=== PATIENT | female | born 1990 | race African-American/Black ===

== ENCOUNTER 2017-02-18 04:19 | Emergency (ER) | payer SELFPAY ==
[2017-02-18 04:31] VITALS: BP 118/79; BMI 29.2
--- NOTE | 2017-02-18 04:35 | DR.GENAD ---
HPI - PCP Primary Care Physician: nfd - HPI Comment HPI Comment: As below; no drainage, fever or chills; pain extends into the jaw; no recent trauma; no similar problems in past; otc tylenol no relief. note: motada hurts her stomach - Complaint/Symptoms Chief Complaint:: pt states" sasha been having pain in my lt ear and not its got my whole side of my face hurting. It started with sinus infection now this" - Source History Provided: Patient - Mode of Arrival Mode of Arrival: Ambulatory - Timing Onset of Chief Complaint: 02/15/17 PMH - PMH Past Medical History: Yes Past Medical History: Migraines Past Surgical History: Yes Surgical History: Other Past Surgical History Comment: gallstones removed - Family History History of Family Medical Conditions: Yes Family Medical History: Diabetes Mellitus, Cancer, Hypertension - Social History Do you use any recreational Drugs:: No Lives With: Family Lives Where: Home - infectious screening In the last 2 months have you had wt loss of >10#?: NO Have you had fever, night sweats or hemotysis?: No Have you traveled outside the country in the last 6 months?: No Isolation: Standard ROS - Review of Systems Constitutional: No Symptoms Reported ENTM: See HPI, Ear Pain Respiratoy: No Symptoms Reported Cardiovascular: No Symptoms Reported Gastrointestinal/Abdominal: No Symptoms Reported Integumentary: No Symptoms Reported PE - Vital Signs Vitals: Temperature 97 F Pulse Rate 60 Respiratory Rate 18 Blood Pressure [Left Arm] 120/80 Blood Pressure 118/79 O2 Sat by Pulse Oximetry 99 - General Limitations: No Limitations General Appearance: Alert, Other (covering face; crying with exam) - Head Head Exam: Normal Inspection - ENT ENT Exam: Normal Exam, Normal Oropharynx, Mucous Membranes Moist External Ear Exam: Pain with Movement, External Tenderness, Other (crepitus bilateral tmj; popping on left) TM/Canal Exam: Bilateral Normal Mouth Exam: Normal Inspection Throat Exam: Normal Inspection - Neck Neck Exam: Normal Inspection - Chest Chest Inspection: Normal Inspection - Respiratory Respiratory Exam: Normal Lung Sounds Bilat Respiratory Exam: Bilateral Clear to Auscultation - Cardiovascular Cardiovascular Exam: Regular Rate, Normal Rhythm - Abdominal Exam Abdominal Exam: Normal Inspection, Normal Bowel Sounds - Diagnosis Discharge Problem: Otalgia of left ear, TMJ (temporomandibular joint syndrome) - Discharge Plan Disposition: HOME, SELF-CARE Condition: Stable Prescriptions: Ketorolac Tromethamine [Toradol Tab] 10 mg PO Q8H PRN #12 tab PRN Reason: Pain - Follow ups/Referrals Follow ups/Referrals: NFD,None [Primary Care Provider] - 3 days - Instructions Instructions: Temporomandibular Joint Syndrome Additional Instructions: follow up with ENT if symptoms persist/worsen
[2017-02-18] MEDS ORDERED: TORADOL 30 MG VIAL IM ONE (04:43)
[2017-02-18] MEDS ORDERED: TORADOL 30 MG VIAL ONE (04:45)
== END 2017-02-18 05:18 | disposition home or self-care (01) ==
LOC: ER 04:19
DX: M26.69 Other specified disorders of temporomandibular joint (principal); H92.02 Otalgia, left ear
CPT/HCPCS: 96372; 99282; J1885

== ENCOUNTER 2017-05-11 13:54 | Emergency (ER) | payer SELFPAY ==
[2017-05-11 14:04] VITALS: BP 121/83; BMI 30.9
--- NOTE | 2017-05-11 15:26 | DR.GENAD ---
HPI - PCP Primary Care Physician: THOMAS - HPI Comment HPI Comment: HISTORY BELOW. - Complaint/Symptoms Chief Complaint Doctors Comments: LT EAR PAIN, CONGESTION AND HEADACHE TIMES 4 DAYS.WORSE TODAY. NO FEVER. HAVING POST NASAL DRAINAGE. Chief Complaint:: Left ear had been hurting for about 4 days, now it has spread to left side of face and tooth on left side of mouth - Nurses notes reviewed Nurses Notes Review: Yes - Source History Provided: Patient - Mode of Arrival Mode of Arrival: Ambulatory - Timing Onset of Chief Complaint: 05/07/17 Came on: Gradually - Duration Duration: Constant Duration: Days - Severity Severity: Moderate PMH - PMH Past Medical History: Yes Past Medical History: Migraines Past Surgical History: Yes Surgical History: Other Past Surgical History Comment: gallstone - Family History History of Family Medical Conditions: Yes Family Medical History: Cancer - Social History Does patient currently use any type of tobacco product: Yes Have you used tobacco products in the last 12 months: Yes Type of Tobacco Use: Cigarettes Does any household member use tobacco: No Alcohol Use: None Do you use any recreational Drugs:: No Lives With: Alone Lives Where: Home - infectious screening In the last 2 months have you had wt loss of >10#?: NO Have you had fever, night sweats or hemotysis?: No Have you traveled outside the country in the last 6 months?: No Isolation: Standard ROS - Review of Systems Constitutional: No Symptoms Reported Eyes: No Symptoms Reported ENTM: Ear Pain (LT EAR PAIN), Nose Discharge. negative: Throat Pain Respiratoy: Non-Productive Cough. negative: Short of Breath, Wheezing, Hemoptysis Cardiovascular: No Symptoms Reported Gastrointestinal/Abdominal: No Symptoms Reported Genitourinary: No Symptoms Reported Neurological: No Symptoms Reported Musculoskeletal: No Symptoms Reported Integumentary: No Symptoms Reported Hematologic/Lymphatic: No Symptoms Reported Endocrine: No Symptoms Reported All Other Systems: Reviewed and Negative PE - Vital Signs Vitals: Temperature 98.1 F Pulse Rate 76 Respiratory Rate 20 Blood Pressure [Left Arm] 120/80 Blood Pressure 121/83 O2 Sat by Pulse Oximetry 100 - General Limitations: No Limitations General Appearance: Alert - Head Head Exam: Normal Inspection - Eyes Eye exam: Normal Appearance - ENT ENT Exam: Normal External Ear Exam External Ear Exam: Normal External Inspection TM/Canal Exam: Left Erythema, Left Bulging, Left Canal Tenderness Nose Exam: Sinus Tenderness Mouth Exam: Normal Inspection Throat Exam: Normal Inspection - Neck Neck Exam: Trachea Midline - Chest Chest Inspection: Symmetric Chest Wall Rise - Respiratory Respiratory Exam: Normal Lung Sounds Bilat Respiratory Exam: Bilateral Clear to Auscultation - Cardiovascular Cardiovascular Exam: Regular Rate, Normal Rhythm, Normal Heart Sounds - Abdominal Exam Abdominal Exam: Normal Inspection - Extremities Extremities Exam: Normal Inspection - Back Back Exam: Normal Inspection - Neurologic Neurological Exam: Alert, Oriented X3 - Psychiatric Psychiatric Exam: Normal Affect, Normal Mood - Skin Skin Exam: Normal Color MDM - Differential Diagnosis Differential Diagnosis: LT EAR PAIN, SINUSITIS Course - Treatment Treatment: SEE ORDERS - Education/Counseling Education/Counseling: Patient, Education Educated On: Treatment, Diagnosis, Needs for Follow Up - Diagnosis Discharge Problem: Earache on left Sinusitis Qualifiers: Sinusitis location: unspecified location Chronicity: acute Recurrence: non- recurrent Qualified Code(s): J01.90 - Acute sinusitis, unspecified - Discharge Plan Disposition: 01 HOME, SELF-CARE Condition: Stable Prescriptions: Amoxicillin [Amoxil 875 mg] 875 mg PO TID #30 tab Cetirizine HCl [Zyrtec Tab 10 mg] 10 mg PO DAILY #10 tab Ketorolac Tromethamine [Toradol Tab] 10 mg PO Q8H PRN #12 tab PRN Reason: Pain - Follow ups/Referrals Follow ups/Referrals: NFD,None [Primary Care Provider] - 3 days - Instructions Instructions: Earache, Sinusitis, Adult, [id number], Sinus Headache Additional Instructions: RETURN TO ED IF WORSE.
[2017-05-11] MEDS ORDERED: TORADOL TAB PO ONE ×2 (15:31→15:32)
== END 2017-05-11 15:36 | disposition home or self-care (01) ==
LOC: ER 14:04
DX: J01.80 Other acute sinusitis (principal); H92.02 Otalgia, left ear
CPT/HCPCS: 99282

== ENCOUNTER 2018-02-07 19:04 | Emergency (ER) | payer SELFPAY ==
[2018-02-07 19:11] VITALS: BP 109/55; BMI 29.9
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
[2018-02-07] MEDS ORDERED: MOTRIN TAB 800 MG PO ONE (19:55)
[2018-02-07 20:19] LABS: SERUM PREGNANCY TEST, QUAL POSITIVE >10 mIU/mL
== END 2018-02-07 21:05 | disposition home or self-care (01) ==
LOC: ER 19:22
DX: T74.11XA Adult physical abuse, confirmed, initial encounter (principal); M79.1 Myalgia
CPT/HCPCS: 36415; 84703; 99282

== ENCOUNTER 2018-02-17 17:20 | Emergency (ER) | payer SELFPAY ==
[2018-02-17 17:30] VITALS: BP 113/78
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
[2018-02-17 18:03] LABS: BASOPHILS % (AUTO) 0.5 % (0.2-1.0); EOSINOPHILS % (AUTO) 0.4 % (0.9-2.9); HEMATOCRIT 38.8 % (36.0-47.0); HEMOGLOBIN 13.5 g/dL (12.0-16.0); LYMPHOCYTES # (AUTO) 2.2 X10^3/uL (1.3-2.9); LYMPHOCYTES % (AUTO) 31.2 % (21.0-51.0); MEAN CORPUSCULAR HEMOGLOBIN 30.7 pg (27.0-34.0); MEAN CORPUSCULAR HGB CONC 34.7 g/dL (33.0-35.0); MEAN CORPUSCULAR VOLUME 88.4 fL (80.0-100.0); MEAN PLATELET VOLUME 8.9 fL (7.4-11.0); MONOCYTES # (AUTO) 0.4 x10^3/uL (0.3-0.8); MONOCYTES % (AUTO) 5.7 % (0.0-13.0); NEUTROPHILS # (AUTO) 4.4 x10^3/uL (2.2-4.8); NEUTROPHILS % (AUTO) 62.2 % (42.0-75.0); PLATELET COUNT 218 X10^3/uL (150.0-450.0); RED BLOOD COUNT 4.39 X10^6/uL (3.5-5.4); RED CELL DISTRIBUTION WIDTH 13.4 % (11.6-16.5); WHITE BLOOD COUNT 7.1 X10^3/uL (3.6-10.0)
[2018-02-17 18:12] LABS: BILIRUBIN,URINE NEGATIVE (NEGATIVE); BLOOD/HEMOGLOBIN,URINE NEGATIVE (NEGATIVE); GLUCOSE, URINE NEGATIVE (NEGATIVE); KETONES,URINE 2+ (NEGATIVE); LEUKOCYTE ESTERASE ,URINE NEGATIVE (NEGATIVE); NITRITES,URINE NEGATIVE (NEGATIVE); PH,URINE 6.5 (5.0 - 8.0); PROTEIN,URINE NEGATIVE (NEGATIVE); UROBILINOGEN,URINE NORMAL (NORMAL)
[2018-02-17 18:15] LABS: APPEARANCE,URINE CLEAR (CLEAR); COLOR,URINE YELLOW (YELLOW)
--- NOTE | 2018-02-17 19:48 | US ---
History: with vaginal spotting Study: Transabdominal ultrasound of the pelvis Comparison: None Findings: There is a single intrauterine gestational sac measuring 3.5 cm diameter. There is a 6 mm y olk sac. The crown-rump length measures 1.22 cm. The heart rate measures 154 beats per minute. There is no free fluid. The adnexa is unremarkable. Impression: Single viable 7 week 3 day intrauterine Reported By:
== END 2018-02-17 20:13 | disposition home or self-care (01) ==
LOC: ER 17:31
DX: O20.0 Threatened abortion (principal); O20.9 Hemorrhage in early pregnancy, unspecified
CPT/HCPCS: 36415; 76801; 81003; 84702; 85025; 86900; 86901; 99282; 99284

== ENCOUNTER 2018-03-13 14:24 | Emergency (ER) | payer OTHER ==
[2018-03-13 14:32] VITALS: BP 114/70; BMI 30.2
[2018-03-13] MEDS ORDERED: NS 1000 ML 1,000 ML ONE (15:10)
[2018-03-13] MEDS ORDERED: PEPCID 20 MG IV PREMIX* 20 MG/50 ML BAG IV ONE ×2 (15:11→15:12)
[2018-03-13] MEDS ORDERED: NS 1000 ML 1,000 ML IV ONE (15:11)
--- NOTE | 2018-03-13 15:18 | DR.GIBLEED ---
HPI - Time Seen Time seen: 15:00 - Primary Care Physician Primary Care Physician: ALBERTO ANAYA - Complaints Chief Complaint Doctors Comments: She's been constipated for the duration of this ( 11 wks EGA). She has intermittent nausea and sometimes today she had an emesis that contained blood. She did not feel dizzy or light headed. She complains of some non-specific abdominal disomfort relating to vomitting. Chief Complaint:: PT C/O THOWING UP BRIGHT RED BLOOD ABOUT 20 MIN AGO AND SHE STATES THAT SHE HAS CONSTIPATION AND SHE IS NOT TO STRAIN AND THAT SHE 11 WEEKS .. BR PT C/O HAVING SOME ABD PAIN WELL ,,BR Self Treatment fo Chief Complaint: PT STATES SHE THREW UP A CUP FULL OF BLOOD ,, BR - Reviewed Nurses Notes Reviewed: Yes - Source History Provided: Patient - Mode of Arrival Mode of Arrival: Ambulatory - Timing Onset of Chief Complaint: 03/13/18 - Quality Vomitus: DARK RED PMH - PMH Past Medical History: No Past Medical History: Migraines Past Surgical History: Yes Surgical History: Other Past Surgical History Comment: GALLSTONE REMOVAL - Family History History of Family Medical Conditions: Yes Family Medical History: Cancer - Social History Does patient currently use any type of tobacco product: No Have you used tobacco products in the last 12 months: No Type of Tobacco Use: None Does any household member use tobacco: No Alcohol Use: None Do you use any recreational Drugs:: No Lives With: Family Lives Where: Home - infectious screening In the last 2 months have you had wt loss of >10#?: NO Have you had fever, night sweats or hemotysis?: No Have you traveled outside the country in the last 6 months?: No Isolation: Standard ROS - Review of Systems Constitutional: No Symptoms Reported Eyes: No Symptoms Reported ENTM: No Symptoms Reported Respiratoy: No Symptoms Reported Cardiovascular: No Symptoms Reported Gastrointestinal/Abdominal: Constipation, Nausea, Other (hematemesis) Genitourinary: No Symptoms Reported Neurological: No Symptoms Reported Musculoskeletal: No Symptoms Reported Integumentary: No Symptoms Reported Hematologic/Lymphatic: No Symptoms Reported Endocrine: No Symptoms Reported Psychiatric: No Symptoms Reported All Other Systems: Reviewed and Negative PE - Vital Signs Vitals: Temperature 97.0 F Pulse Rate 84 Respiratory Rate 18 Blood Pressure [Left Arm] 120/80 Blood Pressure 114/70 O2 Sat by Pulse Oximetry 100 - General Limitations: No Limitations General Appearance: Alert, In No Apparent Distress - Head Head Exam: Normal Inspection - Eyes Eye exam: Normal Appearance, PERRL, EOMI - ENT ENT Exam: Normal Exam, Normal Oropharynx - Neck Neck Exam: Normal Inspection, Full ROM, Trachea Midline - Chest Chest Inspection: Normal Inspection, Symmetric Chest Wall Rise - Respiratory Respiratory Exam: Normal Lung Sounds Bilat - Cardiovascular Cardiovascular Exam: Regular Rate, Normal Rhythm, Normal Heart Sounds, +S2 - Abdominal Exam Abdominal Exam: Normal Inspection, Normal Bowel Sounds, Soft - Rectal Rectal Exam: Deferred - Extremities Extremities Exam: Normal Inspection - Back Back Exam: Normal Inspection - Neurologic Neurological Exam: Alert, Oriented X3 - Psychiatric Psychiatric Exam: Normal Affect - Skin Skin Exam: Warm, Dry, Intact, Normal Color Course - Reevaluation 1st: Improved 2nd: Improved - Education/Counseling Education/Counseling: Patient, Family, Education, Counseling Educated On: Treatment, Diagnosis, Prognosis, Needs for Follow Up ROR - Labs Reviewed Result Diagrams: 03/13/18 15:25 03/13/18 15:25 Laboratory: WBC 9.7 X10^3/uL (3.6-10.0) 03/13/18 15:25 RBC 4.14 X10^6/uL (3.5-5.4) 03/13/18 15:25 Hgb 12.8 g/dL (12.0-16.0) 03/13/18 15:25 Hct 36.4 % (36.0-47.0) 03/13/18 15:25 MCV 87.9 fL (80.0-100.0) 03/13/18 15:25 MCH 31.0 pg (27.0-34.0) 03/13/18 15:25 MCHC 35.2 g/dL (33.0-35.0) H 03/13/18 15:25 RDW 13.9 % (11.6-16.5) 03/13/18 15:25 Plt Count 182 X10^3/uL (150.0-450.0) 03/13/18 15:25 MPV 8.9 fL (7.4-11.0) 03/13/18 15:25 Neut % (Auto) 72.8 % (42.0-75.0) 03/13/18 15:25 Lymph % (Auto) 20.7 % (21.0-51.0) L 03/13/18 15:25 [place] % (Auto) 5.6 % (0.0-13.0) 03/13/18 15:25 Eos % (Auto) 0.4 % (0.9-2.9) L 03/13/18 15:25 Baso % (Auto) 0.5 % (0.2-1.0) 03/13/18 15:25 Neut # (Auto) 7.0 x10^3/uL (2.2-4.8) H 03/13/18 15:25 Lymph # (Auto) 2.0 X10^3/uL (1.3-2.9) 03/13/18 15:25 [place] # (Auto) 0.5 x10^3/uL (0.3-0.8) 03/13/18 15:25 Eos # (Auto) 0.0 x10^3/uL (0.0-0.2) 03/13/18 15:25 Baso # (Auto) 0.0 X10^3/uL (0.0-0.1) 03/13/18 15:25 Absolute Nucleated RBC 0.0 /100WBC 03/13/18 15:25 Sodium 135 mmol/L (136-145) L 03/13/18 15:25 Corrected Sodium TNP 03/13/18 15:25 Potassium 3.9 mmol/L (3.5-5.1) 03/13/18 15:25 Chloride 101 mmol/L (98-107) 03/13/18 15:25 Carbon Dioxide 24.1 mmol/L (21-32) 03/13/18 15:25 BUN 6 mg/dL (7-18) L 03/13/18 15:25 Creatinine 0.59 mg/dL (0.55-1.02) 03/13/18 15:25 Est GFR (MDRD) Af Amer > 60 (>60) 03/13/18 15:25 Est GFR (MDRD) Non-Af > 60 (>60) 03/13/18 15:25 Glucose 82 mg/dL (65-99) 03/13/18 15:25 Calcium 8.6 mg/dL (8.5-10.1) 03/13/18 15:25 Corrected Calcium TNP 03/13/18 15:25 Total Bilirubin 0.20 mg/dL (0.2-1.0) 03/13/18 15:25 AST 14 Units/L (15-37) L 03/13/18 15:25 ALT 24 Units/L (12-78) 03/13/18 15:25 Alkaline Phosphatase 47 Units/L (46-116) 03/13/18 15:25 Total Protein 8.1 g/dL (6.4-8.2) 03/13/18 15:25 Albumin 3.8 g/dL (3.4-5.0) 03/13/18 15:25 Globulin 4.3 g/dL (2.5-4.5) 03/13/18 15:25 Albumin/Globulin Ratio 0.9 Ratio (1.1-2.1) L 03/13/18 15:25 - Diagnosis Discharge Problem: Hematemesis with nausea, Nausea and vomiting during prior to 22 weeks gestation - Discharge Plan Disposition: 01 HOME, SELF-CARE Condition: Stable - Follow ups/Referrals Follow ups/Referrals: RENÉ DOMINGUEZ [Primary Care Provider] - 3 days - Instructions Instructions: Hematemesis, Nausea and Vomiting, Adult
[2018-03-13 15:36] LABS: BASOPHILS % (AUTO) 0.5 % (0.2-1.0); EOSINOPHILS % (AUTO) 0.4 % (0.9-2.9); HEMATOCRIT 36.4 % (36.0-47.0); HEMOGLOBIN 12.8 g/dL (12.0-16.0); LYMPHOCYTES % (AUTO) 20.7 % (21.0-51.0); MEAN CORPUSCULAR HGB CONC 35.2 g/dL (33.0-35.0); MEAN CORPUSCULAR VOLUME 87.9 fL (80.0-100.0); MEAN PLATELET VOLUME 8.9 fL (7.4-11.0); MONOCYTES # (AUTO) 0.5 x10^3/uL (0.3-0.8); MONOCYTES % (AUTO) 5.6 % (0.0-13.0); NEUTROPHILS % (AUTO) 72.8 % (42.0-75.0); PLATELET COUNT 182 X10^3/uL (150.0-450.0); RED BLOOD COUNT 4.14 X10^6/uL (3.5-5.4); RED CELL DISTRIBUTION WIDTH 13.9 % (11.6-16.5); WHITE BLOOD COUNT 9.7 X10^3/uL (3.6-10.0)
[2018-03-13 15:49] LABS: ALANINE AMINOTRANSFERASE 24 Units/L (12-78); ALBUMIN 3.8 g/dL (3.4-5.0); ALKALINE PHOSPHATASE 47 Units/L (46-116); ASPARTATE AMINO TRANSFERASE 14 Units/L (15-37); BLOOD UREA NITROGEN 6 mg/dL (7-18); CALCIUM 8.6 mg/dL (8.5-10.1); CARBON DIOXIDE 24.1 mmol/L (21-32); CHLORIDE 101 mmol/L (98-107); CREATININE 0.59 mg/dL (0.55-1.02); SODIUM 135 mmol/L (136-145); TOTAL PROTEIN 8.1 g/dL (6.4-8.2); eGFR BLACK RACES > 60 (>60); eGFR NON BLACK RACES > 60 (>60)
== END 2018-03-13 17:15 | disposition home or self-care (01) ==
LOC: ER 14:35
DX: K92.0 Hematemesis (principal); R11.2 Nausea with vomiting, unspecified; Z3A.11 11 weeks gestation of pregnancy
CPT/HCPCS: 36415; 80053; 85025; 96365; 96374; 99282; 99283; A4222; S0028

== ENCOUNTER 2018-09-26 06:38 | Inpatient (IN) ==
[2018-09-26] MEDS ORDERED: PHENERGAN INJ 25 MG IV PRN (06:52)
[2018-09-26] MEDS ORDERED: DILAUDID INJ IVP PRN ×2 (06:52→23:00)
[2018-09-26] MEDS ORDERED: REGLAN INJ 10 MG VIAL IVP PRN ×2 (06:52→23:00)
[2018-09-26] MEDS ORDERED: NS 100 ML IV 100 ML IV ONE ×4 (06:59→18:52)
[2018-09-26] MEDS ORDERED: PITOCIN ONE ×2 (07:00→10:05)
[2018-09-26] MEDS ORDERED: AMPICILLIN VIAL 2 GRAM ONE (07:00)
[2018-09-26] MEDS ORDERED: AMPICILLIN VIAL 2 GRAM 2 G in NS 100 ML IV + SPIKE MINIBAG* 100 ML IV SCH (07:00)
[2018-09-26] MEDS: D5 1/2 NS 1000 ML 1,000 ML IV SCH ×2 (07:00→15:24)
[2018-09-26 07:24] LABS: BASOPHILS % (AUTO) 0.4 % (0.2-1.0); BILIRUBIN,URINE NEGATIVE (NEGATIVE); BLOOD/HEMOGLOBIN,URINE 1+ (NEGATIVE); EOSINOPHILS % (AUTO) 0.4 % (0.9-2.9); GLUCOSE, URINE NEGATIVE (NEGATIVE); HEMOGLOBIN 12.8 g/dL (12.0-16.0); KETONES,URINE 3+ (NEGATIVE); LEUKOCYTE ESTERASE ,URINE 2+ (NEGATIVE); LYMPHOCYTES # (AUTO) 1.7 X10^3/uL (1.3-2.9); LYMPHOCYTES % (AUTO) 24.1 % (21.0-51.0); MEAN CORPUSCULAR HEMOGLOBIN 30.7 pg (27.0-34.0); MEAN CORPUSCULAR HGB CONC 34.7 g/dL (33.0-35.0); MEAN CORPUSCULAR VOLUME 88.5 fL (80.0-100.0); MEAN PLATELET VOLUME 9.5 fL (7.4-11.0); MONOCYTES # (AUTO) 0.5 x10^3/uL (0.3-0.8); MONOCYTES % (AUTO) 6.4 % (0.0-13.0); NEUTROPHILS # (AUTO) 4.9 x10^3/uL (2.2-4.8); NEUTROPHILS % (AUTO) 68.7 % (42.0-75.0); NITRITES,URINE NEGATIVE (NEGATIVE); PLATELET COUNT 141 X10^3/uL (150.0-450.0); PROTEIN,URINE 1+ (NEGATIVE); RED BLOOD COUNT 4.18 X10^6/uL (3.5-5.4); RED CELL DISTRIBUTION WIDTH 14.8 % (11.6-16.5); UROBILINOGEN,URINE 1+ (NORMAL); WHITE BLOOD COUNT 7.2 X10^3/uL (3.6-10.0)
[2018-09-26] MEDS: D5LR 1L W PITOCIN 10 UNITS/L 10 UNITS/1,000 ML BAG IV PRN ×2 (07:30→17:45)
[2018-09-26 07:31] LABS: BLOOD UREA NITROGEN 7 mg/dL (7-18); CALCIUM 8.6 mg/dL (8.5-10.1); CARBON DIOXIDE 18.3 mmol/L (21-32); CHLORIDE 102 mmol/L (98-107); CREATININE 0.45 mg/dL (0.55-1.02); SODIUM 135 mmol/L (136-145); eGFR NON BLACK RACES > 60 (>60)
[2018-09-26 07:34] LABS: APPEARANCE,URINE CLOUDY (CLEAR); BACTERIA,URINE NEGATIVE /HPF (NEGATIVE); COLOR,URINE YELLOW (YELLOW); MUCUS,URINE MODERATE /HPF (NEGATIVE); RBC,URINE 0-2 /HPF (NONE SEEN); SQUAMOUS EPITHELIAL CELL,UR FEW /HPF (NEGATIVE)
[2018-09-26] MEDS ORDERED: NS IRRIGATION 1000 ML ONE (09:40)
[2018-09-26] MEDS ORDERED: EPHEDRINE SULFATE INJ ONE (10:05)
[2018-09-26] MEDS ORDERED: VERSED ONE (10:05)
[2018-09-26] MEDS ORDERED: AMPICILLIN VIAL 1 GRAM ONE ×3 (10:51→18:53)
[2018-09-26] MEDS: AMPICILLIN VIAL 1 GRAM 1 G in NS 50 ML IV + SPIKE MINIBAG* 50 ML IV SCH ×4 (11:10→20:23)
[2018-09-26] MEDS ORDERED: NUBAIN INJ 10 ONE ×2 (15:06→17:34)
[2018-09-26] MEDS: NUBAIN INJ 200 MG VIAL MULTIDOSE IVP PRN ×2 (15:07→17:35)
[2018-09-26] MEDS ORDERED: DILAUDID INJ ONE (15:48)
[2018-09-26] MEDS ORDERED: D5LR 1L W PITOCIN 10 UNITS/L 10 UNITS/1,000 ML BAG IV ONE (17:42)
[2018-09-26] MEDS ORDERED: LR 1000 ML IV 1,000 ML IV ONE ×2 (17:42→22:13)
[2018-09-26] MEDS ORDERED: NAROPIN EPIDURAL 0.2% + FENTANYL 90MCG 60 ML EPI ONE (17:42)
[2018-09-26] MEDS ORDERED: XYLOCAINE-MPF 1% ONE (17:42)
[2018-09-26] MEDS ORDERED: FENTANYL INJ 100 mcg ONE (17:42)
[2018-09-26] MEDS ORDERED: ADRENALINE CHL INJ ONE ×2 (17:42→17:54)
[2018-09-26] MEDS ORDERED: XYLOCAINE 2% and EPINEPHRINE 1:100,000 ONE (21:38)
[2018-09-26] MEDS ORDERED: DURAMORPH ONE (21:39)
[2018-09-26] MEDS ORDERED: D5 1/2 NS 1L W PITOCIN 20 UNITS/L 20 UNITS/1,000 ML BAG IV ONE (22:41)
[2018-09-26] MEDS ORDERED: MYLICON TAB 80 MG CHEW PO PRN (22:57)
[2018-09-26] MEDS ORDERED: ADACEL or BOOSTRIX TDaP VACCINE IM ONE (22:57)
[2018-09-26] MEDS ORDERED: PHENERGAN INJ 25 MG IVP PRN (23:00)
[2018-09-26] MEDS ORDERED: ZOFRAN INJ 4 MG VIAL IVP PRN ×2 (23:00→23:04)
[2018-09-26] MEDS ORDERED: D5 1/2 NS 1000 ML 1,000 ML with PITOCIN 20 UNITS IV SCH ×2 (23:00)
[2018-09-26] MEDS ORDERED: BENADRYL INJ 50 MG VIAL IVP PRN ×2 (23:00→23:04)
[2018-09-26] MEDS ORDERED: NARCAN INJ IVP PRN (23:04)
[2018-09-26] MEDS ORDERED: PERCOCET TAB 5/325 MG PO PRN (23:04)
[2018-09-27] MEDS ORDERED: LR 1000 ML IV 1,000 ML IV ONE (04:02)
[2018-09-27] MEDS: LR 1000 ML IV 1,000 ML IV SCH ×2 (04:30→18:05)
[2018-09-27 06:13] LABS: HEMATOCRIT 32.2 % (36.0-47.0); HEMOGLOBIN 11.2 g/dL (12.0-16.0)
[2018-09-27] MEDS: TORADOL 30 MG VIAL IVP PRN ×2 (06:52→19:36)
[2018-09-27] MEDS: PRENATAL PLUS PO SCH (08:36)
[2018-09-27] MEDS ORDERED: PERCOCET TAB 5/325 MG ONE (15:06)
[2018-09-27] MEDS: PERCOCET TAB 5/325 MG PO PRN (15:12)
[2018-09-27] MEDS ORDERED: ADACEL or BOOSTRIX TDaP VACCINE IM ONE (17:27)
[2018-09-27] MEDS ORDERED: MOTRIN TAB 800 MG PO PRN (22:57)
[2018-09-28] MEDS: PERCOCET TAB 5/325 MG PO PRN ×2 (02:20→12:06)
[2018-09-28] MEDS: TORADOL 30 MG VIAL IVP PRN (04:26)
[2018-09-28] MEDS: LR 1000 ML IV 1,000 ML IV SCH (06:58)
[2018-09-28] MEDS: PRENATAL PLUS PO SCH (08:53)
[2018-09-28 12:18] VITALS: BP 109/65
== END 2018-09-28 16:20 | disposition home or self-care (01) | DRG 788 ==
LOC: LD 06:38 → MED/SURG 23:35
PROVIDERS: ADMIT Obstetrics & Gynecology Obstetrics; ATTEND Obstetrics & Gynecology Obstetrics
DX: O61.8 Other failed induction of labor; Z37.0 Single live birth; O99.824 Streptococcus B carrier state complicating childbirth; Z3A.39 39 weeks gestation of pregnancy; Z23 Encounter for immunization; B95.1 Streptococcus, group B, as the cause of diseases classified elsewhere; O62.0 Primary inadequate contractions; O65.8 Obstructed labor due to other maternal pelvic abnormalities
CPT/HCPCS: 36415; 80048; 81001; 85014; 85018; 85025; 86592; 86850; 86900; 86901; 90715; A4216; A4222; S0197; J0171; J0290; J1170; J1885; J2001; J2250; J2300; J2590; J3010; J3490; J7050; J7120; S5010